=== PATIENT | female | born 1970 | race Caucasian/White ===

== ENCOUNTER 2019-11-24 13:45 | Emergency (ER) | payer MEDICAID, SELFPAY ==
--- NOTE | ~2019-11-24 | XR_ITS ---
EXAMINATION: XR foot RT 2V INDICATION: Right foot pain and swelling TECHNIQUE: Two views of the right foot are obtained. COMPARISON: None available FINDINGS: There is no fracture, dislocation, or subluxation. Mild osteoarthritis is noted at the firs t metatarsophalangeal joint and in several interphalangeal joints. A plantar calcaneal enthesophyte i s noted. IMPRESSION: 1. Mild polyarticular osteoarthritis without acute osseous abnormality. Reviewed, dictated and finalized at location A.
--- NOTE | ~2019-11-24 | US_ITS ---
EXAMINATION: US venous doppler LE RT DATE: 11/24/2019 15:32 INDICATION: Right foot swelling TECHNIQUE: Alonzo scale images without and with compression and Doppler images of the right lower extre mity veins were obtained. COMPARISON: None FINDINGS: The right common femoral vein, profunda femoral vein, femoral vein, popliteal vein, peronea l trunk, posterior tibial veins, and greater saphenous vein are patent. IMPRESSION: 1. Patent right lower extremity veins. No evidence of deep venous thrombosis. Reviewed, dictated and finalized at location A.
[2019-11-24 14:15] VITALS: BP 173/97; PULSE 81; RESP 18; TEMP 36.6; O2SAT 98
--- NOTE | 2019-11-24 15:09 | ED.GENADULT ---
HPI - General Adult General Chief complaint: Extremity Injury, Lower Stated complaint: right foot pain Time Seen by Provider: 11/24/19 14:44 Source: patient Mode of arrival: ambulatory Limitations: no limitations History of Present Illness HPI narrative: Patient is a 49-year-old female who presents to emergency department for evaluation of right foot pain and swelling for the last 3 weeks denies injury or trauma notes that the pain is localized to the plantar and dorsal surface denies fever chills nausea vomiting and presents in no distress has not taken anything for her symptoms does have history of bilateral dependent edema but notes this time only the right foot is swollen Related Data Home Medications Medication Instructions Recorded Confirmed furosemide 40 mg DAILY 01/14/19 01/14/19 gabapentin 300 mg TID 01/14/19 01/14/19 levothyroxine 25 mcg DAILY 01/14/19 01/14/19 methylphenidate HCl 20 mg TID 01/14/19 01/14/19 morphine 15 mg QID 01/14/19 01/14/19 paroxetine HCl 40 mg PO DAILY 01/14/19 01/14/19 potassium chloride 20 meq PO DAILY 01/14/19 01/14/19 Allergies Allergy/AdvReac Type Severity Reaction Status Date / Time NSAIDS (Non-Steroidal AdvReac Unknown Unknown Verified 11/24/19 14:42 Anti-Inflamma Review of Systems Review of Systems: All systems reviewed & are unremarkable except as noted in HPI and below PMFSH Past Medical History Medical History (Updated 11/24/19 @ 16:56 by Tam Estrada PA-C) Obesity Surgical History Surgical History Gastric bypass status for obesity Social History Social History (Updated 11/24/19 @ 15:12 by Tam Estrada PA-C) Smoking status: Never smoker Gender identity (if verbalized by the patient): Female Exam Narrative: Exam Narrative: GENERAL: Well-appearing, obese, and in no acute distress. HEAD: Normocephalic, atraumatic. EYES: PERRLA and EOMI. ENT: Nares clear, no rhinorrhea or epistaxis. Mucous membranes moist. CHEST: Clear to auscultation. No respiratory distress. No wheezes rales or rhonchi HEART: Regular rate and rhythm. No murmur heard. EXTREMITIES: Patient with 2+ edema to the dorsal surface of the right foot with tenderness along the plantar aspect no deformities noted no calf tenderness SKIN: Warm, dry, no rash. NEURO: No focal deficits. Alert and oriented x3. Cranial nerves II through XII grossly intact. Neurovascularly intact PSYCH: Normal mood and affect. Course Course Emergency Course: Patient in the room in no distress aware of his findings treatment plan and diagnosis agreeing to follow-up as directed felt appropriate for outpatient reevaluation Vital Signs Vital signs: Vital Signs Temperature 97.9 F 11/24/19 14:15 Pulse Rate 81 11/24/19 14:15 Respiratory Rate 18 11/24/19 14:15 Blood Pressure 173/97 H 11/24/19 14:15 Pulse Oximetry 98 11/24/19 14:15 Temperature 97.9 F 11/24/19 14:15 Pulse Rate 81 11/24/19 14:15 Respiratory Rate 18 11/24/19 14:15 Blood Pressure 173/97 H 11/24/19 14:15 Pulse Oximetry 98 11/24/19 14:15 Medical Decision Making MDM Narrative Medical decision making narrative: Patients injury or pain is consistent with musculoskeletal etiology. No signs of neurological or vascular compromise on exam. Compartments and tisues are soft without signs of compartment syndrome. Pain is felt appropriate for further evaluation on an outpatient basis. Vital Signs Vital Signs: Vital Signs Temperature 97.9 F 11/24/19 14:15 Pulse Rate 81 11/24/19 14:15 Respiratory Rate 18 11/24/19 14:15 Blood Pressure 173/97 H 11/24/19 14:15 Pulse Oximetry 98 11/24/19 14:15 Temperature 97.9 F 11/24/19 14:15 Pulse Rate 81 11/24/19 14:15 Respiratory Rate 18 11/24/19 14:15 Blood Pressure 173/97 H 11/24/19 14:15 Pulse Oximetry 98 11/24/19 14:15 Lab Data Result diagrams: 11/24/19 15:40 11/24/19 15:
[2019-11-24 15:46] LABS: Basophils Percent Auto 0.3 % (0.2-1.2); Eosinophils Absolute Auto 0.1 K/mm3 (0-0.3); Eosinophils Percent Auto 0.9 % (0-4.4); Hematocrit 39.4 % (37.0-47.0); Hemoglobin 13.3 g/dL (12.0-15.0); Immature Granulocyte Absolute 0.01 K/mm3 (0.00-0.031); Immature Granulocyte Percent A 0.2 % (0-0.5); Lymphocytes Absolute Auto 2.25 K/mm3 (0.9-3.2); Lymphocytes Percent Auto 35.5 % (18.3-44.2); Mean Corpuscular HGB Conc 33.8 g/dl (32-36); Mean Corpuscular Hemoglobin 32.2 pg (26-34); Mean Corpuscular Volume 95.4 fl (80-100); Mean Platelet Volume 9.1 fl (7.4-10.4); Monocytes Absolute Auto 0.6 K/mm3 (0.1-0.6); Monocytes Percent Auto 9.5 % (2.6-8.5); Neutrophils Absolute Auto 3.4 K/mm3 (1.3-6.7); Neutrophils Percent Auto 53.6 % (45.5-73.1); Platelet Count Result 340 k/mm3 (150-375); Red Blood Count 4.13 M/mm3 (4.2-5.4); Red Cell Distribution Width 12.9 % (11.5-14.5); White Blood Count 6.3 K/mm3 (4.5-10.0)
[2019-11-24 15:49] LABS: Add Urine Microscopic? NO; Appearance Urine Clear (Clear); Bilirubin Urine Negative (Negative); Blood Urine Negative (Negative); Color Urine Straw (Yellow); Glucose Urine UA Negative (Negative); Ketones Urine Negative (Negative); Leukocyte Esterase Ur Negative LEU/UL (Negative); Nitrate Urine Negative (Negative); Protein Urine Negative (Negative); Specific Grav Ur 1.009 (1.001-1.035); Urobilinogen Urine Negative mg/dL (<2.0)
[2019-11-24 15:57] LABS: Anion Gap 5 mmol/L (8-16); Blood Urea Nitrogen 8 mg/dL (7-17); Carbon Dioxide 33 mmol/L (22-30); Chloride 101 mmol/L (98-107); Estimated CRCL calculation 111 ml/min; Estimated Glomerular Filt Rate > 60; Glucose 86 mg/dL (65-105); Potassium 3.6 mmol/L (3.4-5.0); Sodium 139 mmol/L (137-145)
[2019-11-24 15:58] LABS: INR 0.9; Partial Thromboplastin Time 30.2 SECONDS (22.3-36.8); Prothrombin Time 11.6 Seconds (11.1-14.7)
[2019-11-24 17:06] VITALS: BP 170/90; PULSE 82; RESP 18; O2SAT 98
== END 2019-11-24 17:07 | disposition home or self-care (01) ==
PROVIDERS: Emergency Medicine Emergency Medical Services; Emergency Provider Emergency Medicine; PCP Family Medicine
DX: M79.89 Other specified soft tissue disorders (principal); E66.9 Obesity, unspecified; Z68.41 Body mass index [BMI] 40.0-44.9, adult; Z98.84 Bariatric surgery status
CPT/HCPCS: 36415; 73620; 80048; 81003; 85025; 85610; 85730; 93971; 99284

== ENCOUNTER 2020-12-21 16:31 | Emergency (ER) | payer OTHER, SELFPAY ==
--- NOTE | ~2020-12-21 | XR_ITS ---
EXAMINATION: XR chest 2V EXAM DATE: 12/21/2020 17:08 INDICATION: Chest pain, dizziness. TECHNIQUE: Frontal and lateral projections of the chest obtained and reviewed. Comparison is made to prior examination from 06/09/2016. FINDINGS: The lungs are clear. There are no pleural effusions. The cardiomediastinal silhouette is within normal limits. There is no pneumothorax suspected. There is an old 7th rib fracture posterol aterally. There are cholecystectomy clips. IMPRESSION: No acute cardiopulmonary findings. Reviewed, dictated and finalized at location A. [facility]
[2020-12-21 16:39] VITALS: BP 140/89; PULSE 97; RESP 18; TEMP 35.9; O2SAT 100
--- NOTE | 2020-12-21 16:42 | ED.DIZZY ---
HPI - Dizziness General Chief Complaint: Dizziness Stated Complaint: dizziness/nausea/blurred vision Time Seen by Provider: 12/21/20 16:42 Source: patient Mode of arrival: ambulatory Limitations: no limitations History of Present Illness HPI Narrative: Nida Ibrahim is a 50 yo female with a PMH of neuropathy, ADHD, fibromyalgia, gastric bypass, seizures, hypothyroid, major depression,[facility] complaining of dizziness, blurred vision, elevated blood pressure, nausea, states this started last night and overnight she woke up and woke up dizzy on Thursday and was bad again last night, she states that she has difficulty focusing and cannot read numbers like on the remote-no apparent shortness of breath patient states that she checked her blood pressure is elevated systolically and diastolically this morning her blood sugar was in the 70s however symptoms not resolved even with eating throughout the day. She states her appetite has been down for the last couple of weeks Related Data Home Medications Medication Instructions Recorded Confirmed furosemide 40 mg PO DAILY 01/14/19 12/21/20 gabapentin 300 mg TID 01/14/19 12/21/20 levothyroxine 25 mcg DAILY 01/14/19 12/21/20 paroxetine HCl 40 mg PO DAILY 01/14/19 12/21/20 potassium chloride 20 meq PO DAILY 01/14/19 12/21/20 dextroamphetamine-amphetamine 30 mg PO DAILY 12/21/20 12/21/20 Allergies Allergy/AdvReac Type Severity Reaction Status Date / Time NSAIDS (Non-Steroidal AdvReac Unknown Unknown Verified 12/21/20 16:57 Anti-Inflamma Review of Systems Review of Systems: CONSTITUTIONAL: Denies fever, chills, sweats. Has intermittent vertigo without movement EYES: has visual changes, redness, discharge. ENT: Denies rhinorrhea, congestion, sore throat, otalgia. CARDIOVASCULAR:has chest fulness, palpitations, edema. RESPIRATORY: Denies dyspnea, wheezing, cough GASTROINTESTINAL: Denies abdominal pain, nausea, vomiting, diarrhea. GENITOURINARY: Denies dysuria, hematuria, abnormal discharge SKIN: Denies rash or itching. NEUROLOGIC: Denies numbness, or focal weakness. PSYCHIATRIC: Denies anxiety or depression. [facility] Past Medical History Medical History ADHD Depression Fibromyalgia Hypothyroid Obesity Seizures Surgical History Surgical History Gastric bypass status for obesity Social History Social History Smoking status: Never smoker Gender identity (if verbalized by the patient): Female Comments At time of signature, I agree with nursing past medical, surgical, social and family history. There is no relevant family history pertinent to the presenting complaint. Exam Narrative: GENERAL: This is a overly -nourished, well-developed patient, in mild distress. Obese HEAD: normocephalic, atraumatic. EYES: . Sclera clear/white. Vision is grossly intact with complaints of intermittent blurring of vision. EARS: External ears normal,. Hearing grossly intact. Ear canals appear pink NOSE: External nose normal without nasal discharge, nares without redness, no rhinorrhea. THROAT: Mucous membranes moist NECK: Neck supple, non-tender CARDIOVASCULAR: Regular rate and rhythm without murmurs, gallops, or rubs. RESPIRATORY: Clear to auscultation. Breath sounds equal bilaterally. No wheezes, rales, or rhonchi. GASTROINTESTINAL: Abdomen soft, pannus SKIN: warm, intact with no suspicious lesions or rash, good texture and turgor. NEURO: awake, alert, and oriented to person, place and time. There were no obvious focal neurologic abnormalities. Steady gait, no dysphagia, no dysphasia, no nystagmus; MS grossly intact with 5 out of 5 strength of all extremities, finger opposition, no asymmetry of face,no drift in arms EXTREMITIES: Normal range of motion. BACK: Nontender without deformity Course Course Marissa
--- NOTE | 2020-12-21 17:09 | ECG_ITS ---
Measurements Intervals [place] Rate: 93 P: 139 DC: 139 QRS: -24 QRSD: 93 T: -27 QT: 347 QTc: 434 Interpretive Statements SINUS RHYTHM POSSIBLE LEFT ATRIAL ENLARGEMENT CONSIDER INFERIOR INFARCT, AGE INDETERMINATE BASELINE ARTIFACT- I, II, III, AVR, AVL, AVF ABNORMAL ECG Electronically Signed On 12-21-2020 18:41:07 [employer] by Ranjit Murrieta D.O.
[2020-12-21] MEDS: ONDANSETRON HCL ODT 4 MG TABLET PO (17:32)
[2020-12-21] MEDS: MECLIZINE HCL 25 MG TABLET PO (17:35)
[2020-12-21] MEDS: ASPIRIN 81 MG CHEWABLE TABLET 324 MG PO (17:38)
[2020-12-21 18:02] VITALS: BP 117/69; PULSE 75; RESP 18; TEMP 36.2; O2SAT 100
== END 2020-12-21 18:33 | disposition home or self-care (01) ==
PROVIDERS: Emergency Provider Nurse Practitioner
DX: H81.13 Benign paroxysmal vertigo, bilateral (principal); M19.90 Unspecified osteoarthritis, unspecified site; E03.9 Hypothyroidism, unspecified; E66.9 Obesity, unspecified; Z68.42 Body mass index [BMI] 45.0-49.9, adult; F90.9 Attention-deficit hyperactivity disorder, unspecified type; F32.A Depression, unspecified; G40.909 Epilepsy, unspecified, not intractable, without status epilepticus
CPT/HCPCS: 71046; 93005; 99213; A9270; G0463

== ENCOUNTER 2022-08-13 17:35 | Emergency (ER) | payer BC, OTHER, SELFPAY ==
[2022-08-13 17:47] VITALS: BP 117/64; PULSE 68; RESP 16; TEMP 36.3; O2SAT 98
--- NOTE | 2022-08-13 17:57 | ED.FEMALEGU ---
HPI - Female Genitourinary General Chief complaint: Urogenital-Female Stated complaint: Female Urogenital Time Seen by Provider: 08/13/22 18:00 Source: patient and RN notes reviewed Mode of arrival: ambulatory Limitations: no limitations History of Present Illness HPI Narrative: 52-year-old female presented for complaint of burning with urination, frequency, and urgency since yesterday. She states it feels like UTI. She denies significant history of UTIs. Denies hematuria, abdominal pain, flank pain, nausea, vomiting, fevers or chills. Related Data Home Medications Medication Instructions Recorded Confirmed furosemide 40 mg tablet 40 mg PO DAILY 01/14/19 08/13/22 gabapentin 300 mg capsule 300 mg TID 01/14/19 08/13/22 levothyroxine 25 mcg tablet 25 mcg DAILY 01/14/19 08/13/22 paroxetine HCl 40 mg tablet 40 mg PO DAILY 01/14/19 08/13/22 potassium chloride 10 mEq 20 meq PO DAILY 01/14/19 08/13/22 tablet,extended release dextroamphetamine-amphetamine ER 30 mg PO DAILY 12/21/20 08/13/22 30 mg 24hr capsule,extend release ergocalciferol (vitamin D2) 1,250 08/13/22 08/13/22 mcg (50,000 unit) capsule Allergies Allergy/AdvReac Type Severity Reaction Status Date / Time NSAIDS (Non-Steroidal AdvReac Unknown Other Verified 08/13/22 18:14 Anti-Inflamma Review of Systems Review of Systems: CONSTITUTIONAL: Denies body aches, fever, chills, or sweats. CARDIOVASCULAR: Denies chest pain, palpitations, or edema. RESPIRATORY: Denies cough or dyspnea. GASTROINTESTINAL: Denies abdominal pain, nausea, vomiting, or diarrhea. GENITOURINARY: Reports dysuria, frequency, urgency, denies hematuria, flank pain SKIN: Denies rash, itching, or wounds. MUSCULOSKELETAL: reports chronic back pain, myalgia. [facility] Past Medical History Medical History ADHD Depression Fibromyalgia Hypothyroid Obesity Seizures Surgical History Surgical History Gastric bypass status for obesity Social History Social History (Reviewed 08/13/22 @ 18:33 by MARQUES Key Smoking status: Never smoker Gender identity (if verbalized by the patient): Female Comments At time of signature, I have reviewed and agree with nursing past medical, surgical, social and family history unless otherwise noted. Please see nursing chart for further information. There is no relevant family history pertinent to the presenting complaint Exam Narrative: GENERAL: Well-appearing and in no acute distress. HEAD: Normocephalic EYES: EOMI. . ENT: Mucous membranes pink and moist. NECK: Normal AROM. Supple. CHEST: No respiratory distress. Clear to auscultation. HEART: Regular rate and rhythm. ABDOMEN: Soft, nontender, nondistended, normal active bowel sounds. No CVA tenderness SKIN: Warm, dry, no rash. NEURO: No focal deficits. Alert and oriented x3. Gait steady. PSYCH: Talkative. Course Course Emergency Course: Patient is aware of diagnosis, understands and agrees to treatment plan. Anticipatory guidance given. Patient agrees to follow-up as directed and is aware of reasons to seek care at the emergency department. Portions of this record may have been created with voice recognition software Level of Care: Express Care Visit Vital Signs Vital signs: Vital Signs Temperature 97.3 F L 08/13/22 17:47 Pulse Rate 68 08/13/22 17:47 Respiratory Rate 16 08/13/22 17:47 Blood Pressure 117/64 08/13/22 17:47 Pulse Oximetry 98 08/13/22 17:47 Oxygen Delivery Room Air 08/13/22 17:47 Temperature 97.3 F L 08/13/22 17:47 Pulse Rate 68 08/13/22 17:47 Respiratory Rate 16 08/13/22 17:47 Blood Pressure 117/64 08/13/22 17:47 Pulse Oximetry 98 08/13/22 17:47 Oxygen Delivery Room Air 08/13/22 17:47 Reviewed MDM - Female Genitourinary MDM Narrative Medical decision making narrative:
== END 2022-08-13 18:22 | disposition home or self-care (01) ==
PROVIDERS: Emergency Provider Nurse Practitioner Family
DX: R30.0 Dysuria (principal); M79.7 Fibromyalgia; E03.9 Hypothyroidism, unspecified; E66.9 Obesity, unspecified; Z68.41 Body mass index [BMI] 40.0-44.9, adult; F90.9 Attention-deficit hyperactivity disorder, unspecified type; F32.A Depression, unspecified; Z98.84 Bariatric surgery status
CPT/HCPCS: 81003; 87086; 87088; 99213; G0463